=== PATIENT | female | born 1945 | race Caucasian/White ===

== ENCOUNTER 2019-08-26 09:09 | Emergency (ER) | payer OTHER ==
[~2019-08-26] VITALS: Ht 170.2 cm; Wt 61.7 kg
[~2019-08-26 09:09] MED LIST: ASPIR 8181 M1 PO; HYDREA500 MG PO; HYDROCODONE-AP1 EAC6 PO; IBUPROFEN 600600 M1 PO; JAKAFI10 MG PO
[2019-08-26 09:44] LABS: HEMATOCRIT 41.4 % (37.0-47.0); HEMOGLOBIN 12.6 gm/dL (12.0-15.0); MCH 26.9 pg (26.0-34.0); MCHC 30.4 g/dL (28.0-37.0); MCV 88.2 fL (80.0-100.0); NUCLEATED RBCS 0 /100WBC; RBC 4.69 mil/uL (4.20-5.00)
[2019-08-26 09:48] LABS: PLATELET COUNT* 1084 thou/uL (150-400); WBC 63.7 thou/uL (4.0-11.0)
[2019-08-26 09:54] LABS: CALCIUM 9.2 mg/dL (8.5-10.1); CREATININE 0.8 mg/dL (0.6-1.3); POTASSIUM 5.6 mmol/L (3.5-5.1)
[2019-08-26 10:01] LABS: APTT 31.2 Seconds (25.0-31.3); INR 1.2; PROTIME 12.3 Seconds (9.20-11.50)
[2019-08-26 10:02] LABS: ABSOLUTE EOSINOPHILS 1.3 thou/uL (0.0-0.7); ABSOLUTE LYMPHOCYTES 1.3 thou/uL (0.8-5.3); ABSOLUTE MONOCYTES 0.6 thou/uL (0.0-1.2); ABSOLUTE NEUTROPHILS 60.5 thou/uL (1.6-8.1); ANISOCYTOSIS 1+; ATYPICAL LYMPHS 1 %; METAMYELOCYTES 2 %; PLATELET ESTIMATE INCREASED; POLYCHROMASIA 1+
[2019-08-26 10:08] LABS: ALBUMIN 3.6 g/dL (3.4-5.0); CK-MB MASS 0.7 ng/mL (<0.5-3.6); MAGNESIUM 2.2 mg/dL (1.8-2.4); TOTAL BILIRUBIN 0.5 mg/dL (<0.1-1.0); TOTAL PROTEIN 7.2 g/dL (6.4-8.2)
[2019-08-26 12:04] VITALS: BP 152/59
--- NOTE | 2019-08-27 14:22 | EKG ---
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1945 Requested By: Ronal Mitchell Order Number: [id number] MD: González Al Measurements Intervals [place] Rate: 77 P: 67 MN: 148 QRS: 36 QRSD: 109 T: 37 QT: 389 QTc: 441 Interpretive Statements Sinus rhythm LAE, consider biatrial enlargement RSR' in V1 or V2, right VCD or RVH Baseline wander in lead(s) V2 Compared to ECG 11/04/2017 13:40:25 Right ventricular hypertrophy now present RSR' in V1 or V2 now present Incomplete right bundle-branch block no longer present Electronically Signed On 08-27-2019 14:21:59 CDT by González Al [email or web address] <ELECTRONICALLY SIGNED> By: Chaim Al MD, FACC 08/27/19 1421 1 1 Chaim Al MD, [facility] /EPI
== END 2019-08-26 12:06 | disposition home or self-care (01) ==
LOC: M.ERS 09:09
PROVIDERS: Family Medicine
DX: M25.512 Pain in left shoulder (principal); R07.89 Other chest pain; Z88.0 Allergy status to penicillin; Z96.649 Presence of unspecified artificial hip joint

== ENCOUNTER → 2019-10-17 | Outpatient (CLI) | payer OTHER | LOC: M.ULTRA 15:02 | DX: M79.604 Pain in right leg (principal); M79.605 Pain in left leg; M79.89 Other specified soft tissue disorders ==

== ENCOUNTER 2019-12-26 22:13 | Inpatient (IN) | payer MEDICARE, OTHER ==
[~2019-12-26] VITALS: Ht 172.7 cm; Wt 58.8 kg
[2019-12-26 22:28] VITALS: BP 150/64
[2019-12-26 23:20] LABS: HEMOGLOBIN 13.6 gm/dL (12.0-15.0); MCHC 28.8 g/dL (28.0-37.0); NUCLEATED RBCS 0 /100WBC; PLATELET COUNT* 304 thou/uL (150-400); WBC 17.3 thou/uL (4.0-11.0)
[2019-12-26 23:24] LABS: CALCIUM 8.2 mg/dL (8.5-10.1); CREATININE 0.7 mg/dL (0.6-1.3); POTASSIUM 4.1 mmol/L (3.5-5.1)
[2019-12-26 23:25] LABS: HEMATOCRIT 47.1 % (37.0-47.0); MPV 8.9 fl. (7.2-11.1); RBC 7.13 mil/uL (4.20-5.00); RDW-CV 22.7 % (10.5-14.5)
[2019-12-26 23:26] LABS: INR 1.1; PROTIME 11.7 Seconds (9.20-11.50)
[2019-12-26 23:29] LABS: ALBUMIN 3.4 g/dL (3.4-5.0); TOTAL BILIRUBIN 0.8 mg/dL (<0.1-1.0); TOTAL PROTEIN 6.8 g/dL (6.4-8.2)
[2019-12-27 00:29] LABS: ABSOLUTE BASOPHILS 0.3 thou/uL (0.0-0.2); ABSOLUTE EOSINOPHILS 0.5 thou/uL (0.0-0.7); ABSOLUTE LYMPHOCYTES 0.9 thou/uL (0.8-5.3); ABSOLUTE NEUTROPHILS 14.5 thou/uL (1.6-8.1); PLATELET ESTIMATE ADEQUATE
[2019-12-27 00:30] LABS: ANISOCYTOSIS 2+; MICROCYTES 2+
[2019-12-27 00:31] LABS: HYPOCHROMASIA 2+; LARGE PLATELETS FEW; OVALOCYTES Occasional; TARGET CELLS Occasional
[2019-12-27 00:34] LABS: POIKILOCYTOSIS 1+; POLYCHROMASIA 2+
[2019-12-27 03:53] LABS: HEMATOCRIT 41.8 % (37.0-47.0)
[2019-12-27 05:52] VITALS: BP 131/55
[2019-12-27 08:31] LABS: HEMATOCRIT 40.2 % (37.0-47.0); HEMOGLOBIN 11.7 gm/dL (12.0-15.0); MCH 19.3 pg (26.0-34.0); MCHC 29.2 g/dL (28.0-37.0); MCV 66.3 fL (80.0-100.0); MPV 8.5 fl. (7.2-11.1); RBC 6.07 mil/uL (4.20-5.00); RDW-CV 22.1 % (10.5-14.5)
[2019-12-27 08:48] LABS: ALBUMIN 2.8 g/dL (3.4-5.0); CALCIUM 7.3 mg/dL (8.5-10.1); CREATININE 0.7 mg/dL (0.6-1.3); POTASSIUM 4.5 mmol/L (3.5-5.1); TOTAL BILIRUBIN 0.5 mg/dL (<0.1-1.0); TOTAL PROTEIN 5.5 g/dL (6.4-8.2)
[2019-12-27 11:33] VITALS: BP 115/51
[2019-12-27 12:25] LABS: HEMATOCRIT 40.4 % (37.0-47.0); HEMOGLOBIN 11.2 gm/dL (12.0-15.0); MCH 18.4 pg (26.0-34.0); MCHC 27.7 g/dL (28.0-37.0); MCV 66.5 fL (80.0-100.0); MPV 9.3 fl. (7.2-11.1); RBC 6.08 mil/uL (4.20-5.00); RDW-CV 22.5 % (10.5-14.5)
[2019-12-27 13:00] LABS: WBC 40.6 thou/uL (4.0-11.0)
[2019-12-27 15:43] LABS: HEMATOCRIT 35.9 % (37.0-47.0); HEMOGLOBIN 10.2 gm/dL (12.0-15.0); MCH 18.7 pg (26.0-34.0); MCHC 28.4 g/dL (28.0-37.0); MPV 8.5 fl. (7.2-11.1); RBC 5.45 mil/uL (4.20-5.00); RDW-CV 22.4 % (10.5-14.5)
[2019-12-27 15:44] LABS: WBC 16.4 thou/uL (4.0-11.0)
[2019-12-27 18:47] VITALS: BP 117/44
[2019-12-27 20:00] VITALS: BP 119/44
[2019-12-28] VITALS: BP 116/59
[2019-12-28 04:00] VITALS: BP 154/58
[2019-12-28 05:16] LABS: HEMATOCRIT 36.8 % (37.0-47.0); HEMOGLOBIN 10.5 gm/dL (12.0-15.0); MCH 18.9 pg (26.0-34.0); MCHC 28.4 g/dL (28.0-37.0); MCV 66.5 fL (80.0-100.0); MPV 8.5 fl. (7.2-11.1); RBC 5.54 mil/uL (4.20-5.00); RDW-CV 21.8 % (10.5-14.5); WBC 13.6 thou/uL (4.0-11.0)
[2019-12-28 05:27] LABS: ALBUMIN 2.7 g/dL (3.4-5.0); CALCIUM 7.1 mg/dL (8.5-10.1); CREATININE 0.7 mg/dL (0.6-1.3); MAGNESIUM 1.7 mg/dL (1.8-2.4); PHOSPHORUS* 4.2 mg/dL (2.5-4.9); POTASSIUM 4.2 mmol/L (3.5-5.1); TOTAL BILIRUBIN 0.6 mg/dL (<0.1-1.0); TOTAL PROTEIN 5.4 g/dL (6.4-8.2)
[2019-12-28 07:45] VITALS: BP 110/54
--- NOTE | 2019-12-28 07:54 | NUR ---
ASSUMED PATIENT CARE AT 1900. ASSESSMENT COMPLETED CHARTED. PATIENT IS NSR ON THE MONITOR. HOURLY ROUNDING IN PLACE FOR PATIENT SAFETY. CLWR.
[2019-12-28 11:36] VITALS: BP 117/60
--- NOTE | 2019-12-28 12:19 | CON ---
[address] [address] CONSULTATION Name: AILINYING Jabari Room: [address] IN .R.#: [id number] Admission: 12/27/19 Attend Phys: Becky Melvin Discharge: Date of : 47 Report #: [id number] THIS REPORT FOR: //name// cc: Bo Taylor MD, Tuongvan T. MD ~ THIS REPORT FOR: //name// CC: Clyde Taylor MD DICTATED BY: Riya Ramos [facility] DATE OF SERVICE: 12/27/2019 Please note at the time of this dictation, the patient was seen and physically examined by myself. REASON FOR CONSULTATION: Profuse rectal bleeding. HISTORY OF PRESENT ILLNESS: This is a 74-year-old female who presented to the emergency room after awakening going to the restroom last evening and noticing that she had a great deal of blood and she was unaware of. She has continued to saturate through numerous pads with large clots of bleeding that is bright red blood in nature. The patient was scheduled to have a colonoscopy and marked with Dr. Jiménez given her history of colon polyps. She had a colonoscopy back in 2013 at in which she had 2 colon polyps that were removed, but do not have pathology on those. The patient states she has had no issues. Her bowels have moved, soft and formed on a daily basis. She did have hemorrhoidal banding done to 1 internal hemorrhoid on 11/26/2019 in his office. She states she did fine with that with no issues. She was having some issues with incontinence, which had started to get worse, so she went and saw Dr. Ludy Nash colorectal surgeon on 12/21/2019. He did an exam at that time, she said it was very painful, but wanted to wait until she had her colonoscopy before further recommendations were done. The patient denies any abdominal pain, fever, chills, nausea or vomiting at this time. ALLERGIES: PENICILLIN. MEDICATIONS FROM HOME: See her MAR. PAST MEDICAL HISTORY: Polycythemia vera, history of colon polyps. PAST SURGICAL HISTORY: Hip replacement and hemorrhoid banding. FAMILY HISTORY: Negative for any [place] [address] CONSULTATION Name: AILINYING L Room: [address]#: [id number] Admission: 12/27/19 Attend Phys: Becky Melvin Discharge: Date of : 47 Report #: [id number] SOCIAL HISTORY: Denies any alcohol, tobacco or illegal drug use. REVIEW OF SYSTEMS: Twelve-point review of systems is essentially negative except what is mentioned in the HPI. PHYSICAL EXAMINATION: VITAL SIGNS: Temperature 36.7, pulse 75, respirations 11, blood pressure 127/51. HEART: Regular rate and rhythm. LUNGS: Clear. ABDOMEN: Soft, positive bowel sounds in all 4 quadrants with no masses or tenderness noted. LABORATORY DATA: Baseline is 14. She is 11.7 this morning. White count is 16, platelets 278. PT 11.7, INR 1.1, GFR is 82. CT of the abdomen and pelvis shows hepatosplenomegaly, gallbladder wall thickening, large amount of stool in the colon. There was some fluid in the distal colon and some hyperdensity suggesting active bleeding in the distal colon. IMPRESSION: 1. Rectal bleeding. 2. Status post hemorrhoidal banding in November. 3. History of colon polyps. PLAN: The patient needs a flex sig to further evaluate her rectal bleeding. Timing of this to be determined. Thank you for allowing us to participate in this patient's care. Please do not hesitate to call with any questions in regard to this consult. Agree with above assessment and plan by Riya Ramos. VK. <ELECTRONICALLY SIGNED> By: Alfonso Knott MD 12/28/19 1219 1053 1301Alfonso Knott MD /nt
[2019-12-28 12:42] VITALS: BP 117/60
--- NOTE | 2019-12-28 13:57 | EKG ---
[place] [address] ELECTROCARDIOGRAM REPORT Name: YING PARISI Room: [address] IN [facility]#: [id number] Admission: 12/27/19 Attend Phys: Clyde Bejarano Discharge: 12/28/19 Date of : 47 Date of Service: 12/26/19 2336 Report #: [id number] THIS REPORT FOR: cc: Bo Taylor MD, Tuongvan T. MD Holkins, John M. 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 : 1945 Requested By: Ronal Mitchell Order Number: [id number] MD: Mehul Jj Measurements Intervals [place] Rate: 78 P: 65 ME: 157 QRS: 4 QRSD: 111 T: 56 QT: 420 QTc: 479 Interpretive Statements Sinus rhythm LAE, consider biatrial enlargement RSR' in V1 or V2, right VCD or RVH Borderline prolonged QT interval Compared to ECG 08/26/2019 09:22:21 No significant changes Electronically Signed On 12-27-2019 12:51:47 TILE AND MARBLE SETTER by Mehul Jj [email or web address] <ELECTRONICALLY SIGNED> By: Mehul Jj MD, [facility] 12/27/19 1251 2336 2336 Mehul Jj MD, [facility] /EPI
== END 2019-12-28 13:40 | disposition home or self-care (01) | DRG 920 ==
LOC: M.ERS 22:13 → M.TBA-ER 12-27 02:01 → M.2W 12-27 18:26
PROVIDERS: Family Medicine; Internal Medicine; Internal Medicine Gastroenterology; Surgery; ADMIT Internal Medicine
PROC: 0W3P8ZZ Control Bleeding in Gastrointestinal Tract, Via Natural or Artificial Opening Endoscopic (ICD-10-PCS; principal; 2019-12-27)
DX: K91.840 Postprocedural hemorrhage of a digestive system organ or structure following a digestive system procedure (principal); K62.6 Ulcer of anus and rectum; E44.1 Mild protein-calorie malnutrition; Z60.2 Problems related to living alone; D64.9 Anemia, unspecified; D72.829 Elevated white blood cell count, unspecified; D45 Polycythemia vera; M10.9 Gout, unspecified; K57.30 Diverticulosis of large intestine without perforation or abscess without bleeding; Z96.649 Presence of unspecified artificial hip joint; Z79.899 Other long term (current) drug therapy; Z88.0 Allergy status to penicillin; Z86.711 Personal history of pulmonary embolism; Z86.010 Personal history of colon polyps; Y83.8 Other surgical procedures as the cause of abnormal reaction of the patient, or of later complication, without mention of misadventure at the time of the procedure; Z28.21 Immunization not carried out because of patient refusal; Z83.2 Family history of diseases of the blood and blood-forming organs and certain disorders involving the immune mechanism; Z80.8 Family history of malignant neoplasm of other organs or systems

== ENCOUNTER → 2019-12-26 | Emergency (ER) | payer MEDICARE, OTHER ==
[~2019-12-26] VITALS: Ht 172.7 cm; Wt 58.1 kg
[~2019-12-26] MED LIST changes: +ALLOPURINOL 10100 M3 PO; +ANTIBIOTIC; +[UNRECOGNIZED DRUG - OTHER] PO; +[UNRECOGNIZED DRUG - REMARK]
[2019-12-26 13:19] VITALS: BP 151/65
== END ==
LOC: M.ERS 13:12
DX: Z53.21 Procedure and treatment not carried out due to patient leaving prior to being seen by health care provider (principal)

== ENCOUNTER 2021-08-29 11:34 | Emergency (ER) | payer MEDICARE, OTHER ==
[~2021-08-29] VITALS: Ht 172.7 cm; Wt 67.6 kg
[2021-08-29] MEDS ORDERED: PLAVIX 75 MG TA75 MG PO (11:53)
[2021-08-29] MEDS ORDERED: JAKAFI10 MG PO (11:53)
[2021-08-29] MEDS ORDERED: TOPROL XL25 MG PO (11:53)
[2021-08-29 14:16] LABS: HEMATOCRIT 42.6 % (37.0-47.0); HEMOGLOBIN 12.6 gm/dL (12.0-15.0); MCH 21.8 pg (26.0-34.0); MCHC 29.6 g/dL (28.0-37.0); MCV 73.4 fL (80.0-100.0); MPV 8.6 fl. (7.2-11.1); NUCLEATED RBCS 0 /100WBC; PLATELET COUNT* 646 thou/uL (150-400); RDW-CV 19.9 % (10.5-14.5)
[2021-08-29 14:19] LABS: URINE BILIRUBIN NEGATIVE (Negative); URINE BLOOD NEGATIVE (Negative); URINE CLARITY CLEAR; URINE COLOR YELLOW; URINE GLUCOSE-RANDOM NEGATIVE (Negative); URINE KETONES NEGATIVE (Negative); URINE LEUKOCYTES-REFLEX 1+ (Negative); URINE NITRITE-REFLEX NEGATIVE (Negative); URINE PROTEIN 1+ (Negative); URINE SPECIFIC GRAVITY 1.025 (1.005-1.030); URINE UROBILINOGEN 0.2 E.U./dl (0.2-1.0)
[2021-08-29 14:25] LABS: CALCIUM 8.4 mg/dL (8.5-10.1); POTASSIUM 4.3 mmol/L (3.5-5.1)
[2021-08-29 14:26] LABS: WBC 55.8 thou/uL (4.0-11.0)
[2021-08-29 14:28] LABS: BACTERIA-REFLEX 1-9 Few /HPF (None Seen); MUCUS 4-6 Moderate strn/LPF (None Seen); RENAL EPITHELIAL CELLS 4-10 Moderate /LPF (None Seen); SQUAMOUS 4-10 Moderate /LPF (0-3); URINE RBC 0-2 Rare /HPF (0-2); URINE WBC-REFLEX 6-15 Few /HPF (0-5)
[2021-08-29 14:29] LABS: CRYSTALS None Seen /LPF (None Seen); HYALINE CASTS 4-10 Moderate /LPF (None Seen)
[2021-08-29 14:29] LABS: TOTAL BILIRUBIN 0.5 mg/dL (<0.1-1.0); TOTAL PROTEIN 7.4 g/dL (6.4-8.2)
--- NOTE | 2021-08-29 14:34 | EKG ---
[place] [address] ELECTROCARDIOGRAM REPORT Name: YING PARISI Room: [facility]#: [id number] Admission: 08/29/21 Attend Phys: Discharge: Date of : 47 Date of Service: 08/29/21 1403 Report #: [id number] THIS REPORT FOR: //name// 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: : 1945 Requested By: Emeterio Rose Order Number: [id number] MD: Cody King Measurements Intervals [place] Rate: 62 P: 61 IA: 166 QRS: 15 QRSD: 117 T: 31 QT: 460 QTc: 468 Interpretive Statements Sinus rhythm Nonspecific intraventricular conduction delay Low voltage, precordial leads Compared to ECG 12/26/2019 23:36:41 no change Electronically Signed On 08-29-2021 14:34:16 CDT by Cody King [email or web address] <ELECTRONICALLY SIGNED> By: Cody King MD, [facility] 08/29/21 1434 1403 1403 Cody King MD, [facility] /EPI
[2021-08-29 15:12] LABS: ABSOLUTE EOSINOPHILS 1.1 thou/uL (0.0-0.7); ABSOLUTE LYMPHOCYTES 3.9 thou/uL (0.8-5.3); ABSOLUTE MONOCYTES 3.9 thou/uL (0.0-1.2); ABSOLUTE NEUTROPHILS 46.9 thou/uL (1.6-8.1)
[2021-08-29 15:13] LABS: ANISOCYTOSIS 2+; POLYCHROMASIA Occasional
[2021-08-29 15:14] LABS: LARGE PLATELETS FEW; MICROCYTES 1+
[2021-08-29 15:17] LABS: HYPOCHROMASIA 1+; PLATELET ESTIMATE INCREASED
[2021-08-29] MEDS ORDERED: CEPHALEXIN500 MG PO (17:51)
[2021-08-29] MEDS ORDERED: APAP W/CODEINE1 TA2 PO (17:51)
[2021-08-29 17:58] VITALS: BP 168/61
== END 2021-08-29 17:58 | disposition home or self-care (01) ==
LOC: M.ERS 11:34
PROVIDERS: Physician Assistant
DX: N39.0 Urinary tract infection, site not specified (principal); D72.829 Elevated white blood cell count, unspecified; Z79.899 Other long term (current) drug therapy; Z88.0 Allergy status to penicillin

== ENCOUNTER 2021-09-04 12:51 | Emergency (ER) | payer MEDICARE, OTHER ==
[~2021-09-04] VITALS: Ht 172.7 cm; Wt 64.0 kg
[~2021-09-04 12:51] MED LIST changes: +APAP W/CODEINE1 TA2 PO; +CEPHALEXIN500 MG PO; +PLAVIX 75 MG TA75 MG PO; +TOPROL XL25 MG PO
[2021-09-04 13:54] LABS: HEMATOCRIT 33.8 % (37.0-47.0); MCH 21.8 pg (26.0-34.0); MCHC 29.5 g/dL (28.0-37.0); MCV 74.1 fL (80.0-100.0); MPV 8.7 fl. (7.2-11.1); NUCLEATED RBCS 0 /100WBC; PLATELET COUNT* 800 thou/uL (150-400); RBC 4.56 mil/uL (4.20-5.00); RDW-CV 20.8 % (10.5-14.5)
[2021-09-04 14:01] LABS: CALCIUM 8.1 mg/dL (8.5-10.1); CREATININE 0.8 mg/dL (0.6-1.3); POTASSIUM 4.2 mmol/L (3.5-5.1); WBC 63.3 thou/uL (4.0-11.0)
[2021-09-04 14:06] LABS: ALBUMIN 2.9 g/dL (3.4-5.0); APTT 31.2 Seconds (25.0-31.3); INR 1.1; PROTIME 11.9 Seconds (9.20-11.50); TOTAL BILIRUBIN 1.4 mg/dL (<0.1-1.0); TOTAL PROTEIN 6.4 g/dL (6.4-8.2); URIC ACID* 9.2 mg/dL (2.6-7.2)
[2021-09-04] MEDS ORDERED: PREDNISONE 10 M10 MG PO (14:30)
[2021-09-04] MEDS ORDERED: ALLOPURINOL 10100 M1 PO (14:30)
[2021-09-04 14:43] LABS: ABSOLUTE EOSINOPHILS 0.6 thou/uL (0.0-0.7); ABSOLUTE LYMPHOCYTES 3.8 thou/uL (0.8-5.3); ABSOLUTE MONOCYTES 3.2 thou/uL (0.0-1.2); ABSOLUTE NEUTROPHILS 55.7 thou/uL (1.6-8.1); ANISOCYTOSIS 2+; HYPOCHROMASIA 2+; METAMYELOCYTES 10 %; MYELOCYTES 3 %; PLATELET ESTIMATE INCREASED; POLYCHROMASIA 1+; PROMYELOCYTES 1 %
[2021-09-04] MEDS ORDERED: MOBIC7.5 MG PO (14:49)
[2021-09-04 15:02] LABS: URINE BLOOD NEGATIVE (Negative); URINE CLARITY CLEAR; URINE COLOR YELLOW; URINE GLUCOSE-RANDOM NEGATIVE (Negative); URINE KETONES NEGATIVE (Negative); URINE LEUKOCYTES-REFLEX 1+ (Negative); URINE NITRITE-REFLEX NEGATIVE (Negative); URINE PROTEIN 1+ (Negative)
[2021-09-04] MEDS ORDERED: NORCO5 PO (15:03)
[2021-09-04 15:18] LABS: URINE BILIRUBIN 1+ (Negative)
[2021-09-04 15:21] LABS: BACTERIA-REFLEX 1-9 Few /HPF (None Seen); ICTOTEST (BILI CONFIRMATORY) Negative (Negative); URINE RBC 0-2 Rare /HPF (0-2); URINE WBC-REFLEX 6-15 Few /HPF (0-5)
[2021-09-04 15:22] LABS: CASTS None Seen /LPF (None Seen); CRYSTALS None Seen /LPF (None Seen); SQUAMOUS 4-10 Moderate /LPF (0-3)
[2021-09-04 15:41] VITALS: BP 136/54
== END 2021-09-04 15:42 | disposition home or self-care (01) ==
LOC: M.ERS 12:51
PROVIDERS: Nurse Practitioner Family
DX: D75.1 Secondary polycythemia (principal); R79.89 Other specified abnormal findings of blood chemistry; M79.89 Other specified soft tissue disorders; M25.561 Pain in right knee; M25.562 Pain in left knee; M25.551 Pain in right hip; M25.552 Pain in left hip; Z79.899 Other long term (current) drug therapy; Z88.0 Allergy status to penicillin